=== PATIENT | female | born 1980 | race Caucasian/White ===

== ENCOUNTER 2021-03-06 08:00 | Day surgery (SDC) | payer OTHER ==
[~2021-03-06] VITALS: Ht 162.6 cm; Wt 76.2 kg
[2021-03-06] MEDS ORDERED: LACTATED RINGERS 1,000 ML IV SCH (13:30)
[2021-03-06] MEDS ORDERED: CHLORHEXIDINE 15 ML UDC PO ONE (13:30)
[2021-03-06] MEDS ORDERED: FLUO10TA PO (13:41)
[2021-03-06] MEDS ORDERED: ALPR0.25 PO (13:41)
[2021-03-06] MEDS ORDERED: CHLORHEXIDINE 15 ML UDC ONE (13:43)
[2021-03-06 13:46] VITALS: BP 114/75
[2021-03-06] MEDS ORDERED: BUPIVACAINE/PF 0.5% ONE (15:07)
[2021-03-06] MEDS ORDERED: BUPIVACAINE/PF 0.25% ONE (15:07)
[2021-03-06] MEDS ORDERED: EPINEPHRINE 1 MG/ML, 1ML ONE (15:07)
[2021-03-06] MEDS ORDERED: PROPOFOL 50 ML ONE (15:19)
[2021-03-06] MEDS ORDERED: MIDAZOLAM 1 MG/ML, 2ML ONE (15:20)
[2021-03-06] MEDS ORDERED: FENTANYL PF 250 MCG/5ML ONE (15:20)
[2021-03-06] MEDS ORDERED: MEPERIDINE/PF 25MG/0.5ML IVPush PRN (16:00)
[2021-03-06] MEDS ORDERED: OXYcodone 5 MG/5 ML ORAL.SOL UDC PO PRN (16:00)
[2021-03-06] MEDS ORDERED: DIAZEPAM 5 MG/ML, 2ML IVPush PRN (16:00)
[2021-03-06] MEDS ORDERED: LABETALOL 5MG/ML, 20ML IV PRN (16:00)
[2021-03-06] MEDS ORDERED: EPHEDRINE 50 MG/ML, 1ML IM PRN (16:00)
[2021-03-06] MEDS ORDERED: HYDROmorphone 1 MG/ML, 1ML INJ IVPush PRN (16:00)
[2021-03-06] MEDS ORDERED: EPHEDRINE 50 MG/ML, 1ML IVPush PRN (16:00)
[2021-03-06] MEDS ORDERED: PROMETHAZINE 25 MG/ML, 1ML IVPush PRN (16:00)
[2021-03-06] MEDS ORDERED: ACETAMINOPHEN 325 MG TABLET PO PRN (16:00)
[2021-03-06] MEDS ORDERED: DIPHENHYDRAMINE 50 MG/ML, 1ML IVPush PRN (16:00)
[2021-03-06] MEDS ORDERED: FENTANYL PF 100 MCG/2ML IV PRN (16:00)
[2021-03-06] MEDS ORDERED: ONDANSETRON 2MG/ML, 2ML IVPush PRN (16:00)
[2021-03-06] MEDS ORDERED: PROPOFOL 10 MG/ML, 20ML ONE (16:16)
[2021-03-06] MEDS ORDERED: SUCCINYLCHOLINE 20 MG/ML, 10ML ONE (16:32)
[2021-03-06] MEDS ORDERED: CEFAZOLIN 1,000 MG ONE ×2 (16:32)
[2021-03-06] MEDS ORDERED: OXYcodone 5 MG/5 ML ORAL.SOL UDC ONE (16:47)
[2021-03-06] MEDS ORDERED: ACETAMINOPHEN 650 MG/20.3 ML UDC ONE (16:48)
[2021-03-06] MEDS ORDERED: KETOROLAC 30 MG/1 ML ONE (17:37)
[2021-03-06] MEDS ORDERED: KETOROLAC 30 MG/1 ML IVPush PRN (18:00)
[2021-03-06] MEDS ORDERED: DEXAMETHASONE 4 MG/ML, 1ML ONE (19:32)
[2021-03-06] MEDS ORDERED: ONDANSETRON 2MG/ML, 2ML ONE (19:32)
[2021-03-06] MEDS ORDERED: ROCURONIUM 10 MG/ML,10ML ONE (19:32)
== END 2021-03-06 18:01 | disposition home or self-care (01) ==
LOC: OR 08:00
PROVIDERS: ATTEND Plastic Surgery
DX: N62 Hypertrophy of breast (principal); Z20.822 Contact with and (suspected) exposure to COVID-19
CPT/HCPCS: 19318; 81025; 87635; 88305; J0171; J0330; J0690; J1100; J1885; J2250; J2405; J2704; J3010; J7120